=== PATIENT | male | born 1965 | race Caucasian/White ===

== ENCOUNTER 2019-02-08 13:04 | Emergency (ER) | payer SELFPAY | END 2019-02-08 14:51 | disposition left against medical advice (07) | LOC: ER 13:04 | DX: R00.0 Tachycardia, unspecified (principal); Z53.21 Procedure and treatment not carried out due to patient leaving prior to being seen by health care provider ==

== ENCOUNTER 2020-08-28 12:26 | Emergency (ER) | payer MEDICAID ==
[~2020-08-28] VITALS: Ht 180.3 cm; Wt 104.0 kg
[2020-08-28] MEDS ORDERED: KETOROLAC 30MG/ML VIAL IM ONE (13:45)
[2020-08-28] MEDS ORDERED: LIDOCAINE HCL/PF 1% 10 MG/ML 5ML VIAL IJ ONE (14:30)
[2020-08-28] MEDS ORDERED: IBUP-2029 MT (14:47)
[2020-08-28] MEDS ORDERED: HYDR-4346 MT (14:47)
[2020-08-28 15:32] VITALS: BP 127/65
== END 2020-08-28 16:01 | disposition home or self-care (01) ==
LOC: ER 12:26
DX: S62.617A Displaced fracture of proximal phalanx of left little finger, initial encounter for closed fracture (principal); X58.XXXA Exposure to other specified factors, initial encounter; Y93.89 Activity, other specified; Y92.89 Other specified places as the place of occurrence of the external cause; Y99.8 Other external cause status
CPT/HCPCS: 29125; 73130; 96372; 99283; J1885; J3490; Z7610